=== PATIENT | female | born 1945 | race Caucasian/White ===

== ENCOUNTER 2023-01-22 14:28 | Outpatient (OUT) | payer MEDICARE, SELFPAY ==
--- NOTE | 2023-01-22 14:29 | XR_ITS ---
The [address] [address] Patient Name: PAOLA ANGELES MRN: [id number] date: 1945 Sex: F Assigned Patient Location: [facility] Current Patient Location: Accession/Order Number: [id number] Exam Date: 01/22/2023 14:29 Report Date: 01/23/2023 07:34 At the request of: YUVAL GRACIA Procedure: XR ankle LT min 3V PROCEDURE: XR ankle LT min 3V HISTORY: LEFT ANKLE PAIN ; follow-up left ankle fusion COMPARISON: XR ankle left 07/17/2022 FINDINGS: BONES:Ankle joint and hindfoot fusion via posterior plate and screws in the medial malleolus through the calcaneus lag screw. No evidence of hardware fracture loosening. Resection of 1 cm segment of distal fibula diaphysis without osseous reconnection. Moderate degenerative changes the midfoot. SOFT TISSUES:No visible soft tissue swelling. EFFUSION:None visible. OTHER: Negative. XR/XR ankle LT min 3V IMPRESSION: 1. Stable surgical changes without evidence of hardware failure or change in alignment. 2. Grossly stable moderate degenerative changes of the midfoot. Electronically authenticated by: BELEN TORRES Date: 01/23/2023 07:34
== END 2023-01-22 14:29 | disposition home or self-care (01) ==
LOC: RAD 14:28
PROVIDERS: Visit Provider Podiatrist Foot & Ankle Surgery
DX: M19.072 Primary osteoarthritis, left ankle and foot (principal)
CPT/HCPCS: 73610

== ENCOUNTER 2024-01-28 08:22 | Outpatient (OUT) | payer MEDICARE, SELFPAY ==
--- NOTE | 2024-01-28 | XR_ITS ---
The [address] [address] Patient Name: PAOLA ANGELES MRN: [id number] date: 1945 Sex: F Assigned Patient Location: Current Patient Location: Accession/Order Number: [id number] Exam Date: 01/28/2024 14:55 Report Date: 01/29/2024 06:06 At the request of: YUVAL GRACIA Procedure: XR ankle LT min 3V PROCEDURE: XR ankle LT min 3V HISTORY: LEFT ANKLE PAIN COMPARISON: XR ankle left 01/22/2023 FINDINGS: BONES:Mechanical fusion of the ankle joint and hindfoot via dorsal plate and screws; no appreciable hardware fracture loosening. No bone fracture dislocation. Residual evidence of prior donna placement and removal from the distal tibia and hindfoot. Prior resection of a short segment of the distal fibula diaphysis. SOFT TISSUES:Stable mild soft tissue swelling surrounding the ankle. EFFUSION:None visible. OTHER: Negative. XR/XR ankle LT min 3V IMPRESSION: 1. Stable surgical changes and degenerative changes. No appreciable hardware failure or change in alignment. Electronically authenticated by: BELEN TORRES Date: 01/29/2024 06:06
== END 2024-01-28 08:23 | disposition home or self-care (01) ==
PROVIDERS: Visit Provider Podiatrist Foot & Ankle Surgery
DX: M19.072 Primary osteoarthritis, left ankle and foot (principal); Z98.890 Other specified postprocedural states
CPT/HCPCS: 73610